=== PATIENT | male | born 1950 | race Caucasian/White ===

== ENCOUNTER 2021-03-24 16:02 | Outpatient (REF) | payer MEDICARE, SELFPAY ==
[2021-03-25 18:28] LABS: COVID-19 RT-PCR UVMMC Result Positive (Negative)
== END 2021-03-24 16:03 | disposition home or self-care (01) ==
LOC: LBN 16:02
PROVIDERS: Visit Provider Physician Assistant
DX: Z20.822 Contact with and (suspected) exposure to COVID-19 (principal); R05.8 Other specified cough
CPT/HCPCS: U0003; U0005

== ENCOUNTER 2021-06-03 04:19 | Outpatient (CLI) | payer MEDICARE, SELFPAY ==
[2021-06-03 07:19] LABS: HCT 46.5 % (40.0-50.0); MCH 29.1 pg (27.0-33.0); MCHC 32.3 % (32.0-36.0); MCV 90.1 fL (80-95); MPV 10.1 fL (8.0-11.0); Platelet Count 177 10^3/uL (130-400); RBC 5.16 10^6/uL (4.36-5.78); RDW 13.5 % (11.8-14.1); RDW-SD 45.1 fL
[2021-06-03 07:59] LABS: ALT 34 U/L (16-63); AST 23 U/L (15-37); Alkaline Phosphatase 113 U/L (46-116); BUN 20 mg/dL (7-18); Bilirubin, Total 0.4 mg/dL (0.2-1.0); CREATININE 1.2 mg/dL (0.70-1.30); Calcium 9.2 mg/dL (8.5-10.1); Calculated LDL 93 mg/dL (<100); Chloride 105 mmol/L (98-107); Cholesterol 164 mg/dL (<200); Estimated GFR 59.86 (mL/min/1.73m2); Glucose 100 mg/dL (74-106); HDL Cholesterol 37 mg/dL (40-60); Potassium 4.5 mmol/L (3.5-5.1); Sodium 141 mmol/L (136-145); Triglyceride 174 mg/dL (<150)
[2021-06-03 18:50] LABS: PSA, Screening 2.4 ng/mL (0.0-6.5)
== END 2021-06-03 04:20 | disposition home or self-care (01) ==
LOC: LBO 04:19
PROVIDERS: PCP Family Medicine; Visit Provider Family Medicine
DX: I10 Essential (primary) hypertension; I25.10 Atherosclerotic heart disease of native coronary artery without angina pectoris; Z12.5 Encounter for screening for malignant neoplasm of prostate; L98.9 Disorder of the skin and subcutaneous tissue, unspecified; Z85.46 Personal history of malignant neoplasm of prostate
CPT/HCPCS: 36415; 80053; 80061; 84153; 85027

== ENCOUNTER 2021-06-07 08:37 | Outpatient (CLI) | payer MEDICARE, SELFPAY ==
--- NOTE | 2021-06-07 08:30 | RT.EKG_ITS ---
APPROVED REPORT Exam: Resting ECG Reason for Exam: CAD Patient Location: O HR:59 bpm ECG Measurements Heart Rate 59 AXIS OK 156 P 42 QRSd 91 QRS 57 QT 387 T 59 QTc 384 Conclusion Sinus rhythm...normal P axis, V-rate 50- 99 Baseline wander in lead(s) V6 Normal Electrocardiogram
== END 2021-06-07 08:38 | disposition home or self-care (01) ==
LOC: DI.CARD 08:38
PROVIDERS: PCP Family Medicine; Visit Provider Internal Medicine Cardiovascular Disease
DX: I25.10 Atherosclerotic heart disease of native coronary artery without angina pectoris (principal)
CPT/HCPCS: 93010

== ENCOUNTER → 2021-06-07 13:29 | Outpatient (BNVA) | payer MEDICARE, SELFPAY | PROVIDERS: PCP Family Medicine; Referring Provider Family Medicine; Visit Provider Internal Medicine Cardiovascular Disease | DX: E78.5 Hyperlipidemia, unspecified (principal); I25.10 Atherosclerotic heart disease of native coronary artery without angina pectoris | CPT/HCPCS: 93005; 99203; 99204 ==

== ENCOUNTER 2022-05-17 01:50 | Outpatient (CLI) | payer MEDICARE, SELFPAY ==
[2022-05-17 12:54] LABS: Anion Gap 8.6 mmol/L (3-11); BUN 16 mg/dL (7-18); CO2 28.4 mmol/L (21.0-32.0); CREATININE 1.1 mg/dL (0.70-1.30); Calcium 9.6 mg/dL (8.5-10.1); Calculated LDL 77 mg/dL (<100); Chloride 105 mmol/L (98-107); Cholesterol 137 mg/dL (<200); Estimated GFR 71.77 (mL/min/1.73m2); Glucose 103 mg/dL (74-106); HDL Cholesterol 37 mg/dL (40-60); Potassium 4.6 mmol/L (3.5-5.1); Sodium 142 mmol/L (136-145); Triglyceride 119 mg/dL (<150)
[2022-05-17 18:29] LABS: Hepatitis C Ab w Rflx HCV PCR Negative (Negative)
== END 2022-05-17 01:51 | disposition home or self-care (01) ==
LOC: LOS 01:52
PROVIDERS: PCP Family Medicine; Visit Provider Family Medicine
DX: E87.1 Hypo-osmolality and hyponatremia (principal); Z11.59 Encounter for screening for other viral diseases; E78.5 Hyperlipidemia, unspecified
CPT/HCPCS: 36415; 80048; 80061; 86803

== ENCOUNTER → 2023-01-19 09:18 | Outpatient (BNVA) | payer MEDICARE, SELFPAY | PROVIDERS: PCP Family Medicine; Referring Provider Family Medicine; Visit Provider Student in an Organized Health Care Education/Training Program | DX: R06.6 Hiccough (principal); R06.00 Dyspnea, unspecified; I25.10 Atherosclerotic heart disease of native coronary artery without angina pectoris | CPT/HCPCS: 99205 ==

== ENCOUNTER 2023-01-24 03:04 | Outpatient (CLI) | payer MEDICARE, SELFPAY ==
[2023-01-24] MEDS: Inhaler, Assist Device 1 EACH MC (09:07)
[2023-01-24] MEDS: Levalbuterol HFA 15 GM INH 4 PUFF IH (09:07)
--- NOTE | 2023-01-24 10:46 | W.PFT ---
Date of service: 01/24/23 Time of Service: 07:55 Pulmonary Function Test Result Indications: Hiccups Interpretation Spirometry: There is no airflow limitation. No significant bronchodilator response Lung Volumes: There is hyperinflation and air trapping Diffusion Capacity: Normal diffusion Airway Pressure: Normal airways resistance Impression Likely normal pulmonary function with some air trapping Clinical Correlation therefore is recommended.
== END 2023-01-24 03:05 | disposition home or self-care (01) ==
LOC: RT 03:05
PROVIDERS: PCP Family Medicine; Visit Provider Student in an Organized Health Care Education/Training Program
DX: R06.6 Hiccough (principal)
CPT/HCPCS: 94060; 94726; 94729

== ENCOUNTER → 2023-01-27 00:29 | Outpatient (CLI) | payer MEDICARE, SELFPAY ==
--- NOTE | 2023-01-27 08:30 | DI.US_ITS ---
APPROVED REPORT EXAM: Comprehensive 2D, Doppler, and color-flow Echocardiogram Patient Location: Out-Patient Strap Stitcher: Shaw Adkins RDCS (AE) Indications: dyspnea, hiccups Other Information Study Quality: Good Conclusion Normal left ventricular wall thickness and chamber size. Ejection fraction is 65%. Wall motion is n ormal Normal right ventricular size and systolic function Both atria are normal in size Aortic valve is mildly sclerotic and probably trileaflet without stenosis or regurgitation Wall motion Left Ventricle The left ventricle is normal size. The left ventricular systolic function is normal. The left ventric ular ejection fraction is within the normal range. There is normal left ventricular wall thickness. T here is normal LV segmental wall motion. There is no ventricular septal defect visualized. LVEF is 65 %. Right Ventricle The right ventricle is normal size. The right ventricular systolic function is grossly normal. Unable to assess PA pressure. Atria The left atrium size is normal. The right atrium size is normal. The interatrial septum is intact wit h no evidence for an atrial septal defect. Aortic Valve Mild aortic valve sclerosis. Aortic valve is probably trileaflet. There is no aortic valvular stenosi s. No aortic regurgitation is present. Mitral Valve The mitral valve is normal in structure. No evidence of mitral valve stenosis. There is no mitral rona ve regurgitation noted. Tricuspid Valve The tricuspid valve is normal in structure. There is no tricuspid valve stenosis. Trace tricuspid reg urgitation. Pulmonic Valve Pulmonic valve is not well visualized. There is no pulmonic valvular stenosis. There is no pulmonic v alvular regurgitation. Great Vessels The aortic root is normal in size. The ascending aorta is normal in size. Aortic arch is normal in ca liber. IVC is normal in size and collapses >50% with inspiration. Pericardium There is no pericardial effusion. 2D Dimensions IVSD d PLAX 0.90 cm M: 0.6-1.2 Ao Root d 3.29 cm M: 3.1 - 3.7 LVPW d PLAX 0.94 cm M: 0.6 - 1.2 Ao Asc Diam d 3.32 cm M: 2.6 - 3.4 LVID d PLAX 4.32 cm M: 4.2 - 5.8 LVDs 2.96 cm M: 2.5 - 4.0 LV EF Teichholz 59.7 % FS 31.47 % LV EDV (Teich) 83.9 mL LV ESV (Teich) 33.9 mL Stroke Vol Index (Teich) 23.29 Auto EF LV EDV A4C 99.1 mL LV EDV A2C 71.3 mL LV EDV BP 84.0 mL LV ESV A4C 36.6 mL LV ESV A2C 26.2 mL LV ESV BP 30.6 mL LVEF(%) A4C 63.1 % LVEF(%) A2C 63.2 % LVEF(%) BP 63.5 % LV SV A4C 62.5 ml LV SV A2C 45.1 ml LV SV BP 53.4 ml LV CO A4C 3.5 L/min LV CO A2C 2.5 L/min LV CO BP 3.0 L/min HR A4C 55.29 BPM HR A2C 55.73 BPM LV EDV Index (BP) LA Volume LA Length A4C 3.8 cm LA Length A2C LA Area A4C s 6.65 cm2 LA Area A2C s LA Vol A4C A-L 9.86 mL LA Vol A2C A-L LA Vol Biplane A-L LA Vol A4C MOD 9.4 mL LA Vol A2C MOD LA Vol BP MOD RA Volume RA Area A4C 8.9 cm2 RA ESV A4C (A-L) 15.9mL RA Vol/BSA A4C A-L RA Length A4C 4.2 cm RA ESV A4C (MOD) 16.6mL LV Diastology MV E' medial 0.092 (>0.07 m/s) MV E Vmax 0.74 (0.4-1.3 m/s) MV E/E' MED 8.00 (<14) MV A Vmax 0.95 (0.4-1.3 m/s) MV E' lateral 0.095 (>0.1 m/s) E/A Ratio 0.8 MV E/E' LAT 7.74 (<14) MV E' Average 0.094 m/s MV E/E'(average) 7.87 Aortic Valve AoV Vmax 1.43 m/s LVOT Vmax 1.17 m/s AoV Peak Grad 8.2 mmHg LVOT Peak Grad 5.5 mmHg AoV Area (Vmax) 2.29 cm2 LVOT VTI 0.279 m AoV VTI 0.338 m LVOT Mean Grad 3.0 mmHg AoV Mean Wai. 0.97 m/s LVOT SV 78.22 mL AoV Mean Grad 4.4 mmHg LVOT Diam s 1.85 cm AoV Area (VTI) 2.32 cm2 Velocity Ratio 0.82 Mitral Valve MV DT 261 (160-240 msec) Pulmonary Valve PV Vmax 1.41 (0.5-1.5 m/s) RVOT Vmax 0.80 m/s PV Peak Grad 7.9 mmHg RVOT Peak Gr. 2.6 mmHg PV Mean Wai 0.93 m/s RVOT VTI 0.198 m PV Mean Grad 3.9 mmHg RVOT Mean Gr. 1.4 mmHg
--- NOTE | 2023-01-27 15:25 | DI.RAD_ITS ---
Exam(s) XR CHEST 2V PA LATERAL EXAM: XR CHEST 2V PA LATERAL CLINICAL HISTORY: R06.00 dyspnea R06.06 TECHNIQUE: 2D digital imaging was performed. COMPARISON: No exams were available for comparison FINDINGS: HEART: Normal size. Aorta: Not dilated. PULMONARY VASCULATURE: Normal. LUNGS: Clear. No visible emphysematous changes. No visible interstitial changes. PLEURAL SPACE: No pleural effusion or pneumothorax. BONE:Unremarkable for age. IMPRESSION: No acute abnormality. DATA REPOSITORY: RADIATION DOSE DELIVERED:
== END ==
PROVIDERS: PCP Family Medicine; Visit Provider Student in an Organized Health Care Education/Training Program
DX: R06.00 Dyspnea, unspecified (principal); R06.6 Hiccough
CPT/HCPCS: 93306; 71046

== ENCOUNTER → 2023-02-20 09:08 | Outpatient (BNVA) | payer MEDICARE, SELFPAY | PROVIDERS: PCP Family Medicine; Referring Provider Family Medicine; Visit Provider Student in an Organized Health Care Education/Training Program | DX: R06.6 Hiccough (principal); I25.10 Atherosclerotic heart disease of native coronary artery without angina pectoris | CPT/HCPCS: 99214 ==

== ENCOUNTER 2023-09-20 04:46 | Outpatient (CLI) | payer MEDICARE, SELFPAY ==
[2023-09-20 09:16] LABS: Hemoglobin A1C 5.6 % (<5.7)
[2023-09-20 09:31] LABS: Calculated LDL 77 mg/dL (<100); Cholesterol 146 mg/dL (<200); HDL Cholesterol 41 mg/dL (40-60); Triglyceride 141 mg/dL (<150)
[2023-09-20 18:06] LABS: PSA, Screening 2.4 ng/mL (<=6.5)
== END 2023-09-20 04:47 | disposition home or self-care (01) ==
LOC: LBO 04:46
PROVIDERS: Nurse Practitioner Family; PCP Family Medicine; Visit Provider Family Medicine
DX: Z13.1 Encounter for screening for diabetes mellitus (principal); Z12.5 Encounter for screening for malignant neoplasm of prostate; Z13.6 Encounter for screening for cardiovascular disorders
CPT/HCPCS: 36415; 80061; 84153; 83036

== ENCOUNTER 2024-07-05 15:06 | Emergency (ER) | payer MEDICARE, SELFPAY ==
[2024-07-05] VITALS (12 sets, daily range): BP systolic 133–198; BP diastolic 67–81; PULSE 55–65; RESP 13–25; TEMP 36.7; O2SAT 97–98
--- NOTE | 2024-07-05 15:00 | RT.EKG_ITS ---
APPROVED REPORT Exam: Resting ECG Reason for Exam: Weakness Patient Location: E HR:63 bpm ECG Measurements Heart Rate 63 AXIS HI 151 P 46 QRSd 96 QRS 55 QT 397 T 63 QTc 404 Conclusion Sinus rhythm...normal P axis, V-rate 60- 99 Atrial premature complex...SV complex w/ short R-R interval
--- NOTE | 2024-07-05 15:30 | DI.MRI_ITS ---
Exam(s) MR BRAIN WO EXAM: MR BRAIN WO CLINICAL HISTORY: headache, off balance, double vision TECHNIQUE: Multiplanar multisequence MRI of the brain was performed. COMPARISON: CT CT BRAIN NECK CTA from 07/05/2024 FINDINGS: VENTRICLES AND EXTRA AXIAL SPACES: Normal in size and morphology for the patient's age. MIDLINE SHIFT: None. CEREBRAL PARENCHYMA: No focus of restricted diffusion to suggest acute infarct. No space-occupying le wesley identified. Few scattered areas of hyperintense signal seen in the white matter on the FLAIR and T2 weighted images most consistent with chronic microvascular ischemic changes. HEMORRHAGE: None. BRAINSTEM/CEREBELLUM: Normal. CALVARIUM: Normal. VISUALIZED PARANASAL SINUSES/MASTOIDS:Clear. [facility]: Normal flow void. PITUITARY GLAND: Unremarkable. OTHER FINDINGS: None. IMPRESSION: No evidence of an acute infarct. DATA REPOSITORY:
--- NOTE | 2024-07-05 15:36 | ED.GENADUL_ITS ---
Discharge Plan Discharge Details Chief Complaint: CVA/TIA Primary Care Provider: Teo Ghosh ED Provider: Alexis Jerome Home Meds and New Rx's Prescriptions: No Action aspirin 81 mg tablet,chewable 81 mg PO DAILY atorvastatin [Lipitor] 80 mg tablet 80 mg PO DAILY Qty: 90 3RF ezetimibe [Zetia] 10 mg tablet 10 mg PO DAILY Qty: 90 3RF tirzepatide (weight loss) 2.5 mg/0.5 mL pen injector 2.5 mg subcut QWEEK Qty: 2 0RF Rx Instructions: for 4 weeks tetanus-diphtheria toxoids-Td 2-2 Lf unit/0.5 mL suspension 0.5 ml IM ONCE Qty: 0.5 0RF doxycycline hyclate 100 mg tablet 100 mg PO BID 14 Days Qty: 28 0RF metoprolol tartrate 25 mg tablet 12.5 mg PO DAILY Qty: 45 3RF sertraline 50 mg tablet 50 mg PO DAILY Qty: 30 2RF HPI General Mode of arrival: ambulatory . Date/Time Provider Initiated Documentation: 07/05/24 15:10 . Limitations to Documentation: no limitations . Information obtained by: patient and family . HPI Narrative: HISTORY OF PRESENT ILLNESS The patient presents to the ER with headaches, blurred vision, and diplopia, accompanied by his son. He has had persistent headaches, blurred vision, and diplopia for the past few days, worsening progressively, especially his eyesight and balance. Headache severity has decreased since his initial visit, but vision problems were absent then. Initially suspected sinus infection, saw PCP.. A week later, prescribed an antibiotic by a PA who suspected sinus infection. Despite several appointments with PCP and PA over the past 2 weeks, no improvement. Advised to undergo CT scan and referred to ER. Reports difficulty with balance and walking, necessitating a slow pace due to shakiness. No falls, specific weakness, or numbness. Manages to drive short distances by covering one eye. BP elevated today, typically well-controlled. Earlier today underwent cyst removal from back under local anesthesia with lidocaine. Related Data Home Medications ?Medication ?Instructions ?Recorded ?Confirmed aspirin 81 mg chewable tablet 81 mg PO DAILY 03/24/21 07/05/24 metoprolol tartrate 25 mg tablet 12.5 mg (1/2 x 25 mg) PO DAILY #45 01/04/24 07/05/24 tabs sertraline 50 mg tablet 50 mg PO DAILY #30 tabs 05/30/24 07/05/24 atorvastatin 80 mg tablet (Lipitor) 80 mg PO DAILY #90 tabs 06/25/24 07/05/24 ezetimibe 10 mg tablet (Zetia) 10 mg PO DAILY #90 tabs 06/25/24 07/05/24 tirzepatide (weight loss) 2.5 2.5 mg (0.5 mL) subcut QWEEK #2 mL 06/25/24 07/05/24 mg/0.5 mL subcutaneous pen injector doxycycline hyclate 100 mg tablet 100 mg PO BID 14 days #28 tabs 07/02/24 07/05/24 tetanus-diphtheria toxoids-Td 2 Lf 0.5 ml IM ONCE #0.5 mL 07/05/24 07/05/24 unit-2 Lf unit/0.5 mL IM suspension Previous Rx's ?Medication ?Instructions ?Recorded metoprolol tartrate 25 mg tablet 12.5 mg (1/2 x 25 mg) PO DAILY #45 01/04/24 tabs sertraline 50 mg tablet 50 mg PO DAILY #30 tabs 05/30/24 atorvastatin 80 mg tablet (Lipitor) 80 mg PO DAILY #90 tabs 06/25/24 ezetimibe 10 mg tablet (Zetia) 10 mg PO DAILY #90 tabs 06/25/24 tirzepatide (weight loss) 2.5 2.5 mg (0.5 mL) subcut QWEEK #2 mL 06/25/24 mg/0.5 mL subcutaneous pen injector doxycycline hyclate 100 mg tablet 100 mg PO BID 14 days #28 tabs 07/02/24 tetanus-diphtheria toxoids-Td 2 Lf 0.5 ml IM ONCE #0.5 mL 07/05/24 unit-2 Lf unit/0.5 mL IM suspension Allergies Allergy/AdvReac Type Severity Reaction Status Date / Time cefaclor (From [facility]) Allergy Intermediate Whole body Verified 07/05/24 15:16 Hives General Stated Complaint: CVA/TIA HECTOR: 3 Review of Systems All systems reviewed & are unremarkable except as noted in HPI and below Constitutional Constitutional: Denies fever(s) Neurologic Neurologic: Reports as per HPI Exam Const General: cooperative and no acute distress HENMT Head: normocephalic and atraumatic Mouth: moist mucous membranes Eyes Conjunctivae: normal conjunctivae Sclera: normal sclerae EOM: EOM intact bilaterally and nystagmus Neck Neck: trachea midline and supple Resp Auscultation: clear to auscultation bilaterally, no rales, no rhonchi and no wheezes Cardio Jugular venous pressure: no JVD Rate: regular rate and not tachycardic Rhythm: regular rhythm Heart Sounds: murmur systolic II/ and at the right sternal border GI Palpation: soft, not firm, no guarding, no masses, not rigid and nontender Skin General skin exam: no rashes or lesions noted Neuro General: patient alert, patient awake, patient oriented x3 and tone normal Cranial Nerves: PERRL, accommodation normal, EOM intact bilaterally, facial strength normal, tongue midline, hearing normal, able to rotate head bilaterally, able to elevate shoulders bilaterally, nystagmus horizontal and with left lateral gaze and symmetric palate elevation Cognition: normal cognition Speech: speech normal Motor: strength 5/5 throughout Sensory Exam: no sensory deficits noted Coordination: [id number] test abnormal (Some past-pointing) and jlmy-eu-[id number] test normal Other: Normal rapid alternating movements Extrem General: no edema Psych Appearance: grossly normal Mental Status: mental status grossly normal Speech and Movement: speech and movement normal Course Vital Signs Vital signs: Vital Signs Temperature 36.7 C 07/05/24 15:07 Pulse 65 07/05/24 15:07 Respiratory Rate 18 07/05/24 15:07 Blood Pressure 198/79 H 07/05/24 15:07 Pulse Oximetry 97 07/05/24 15:07 Temperature 36.7 C 07/05/24 15:07 Pulse 65 07/05/24 15:07 Respiratory Rate 18 07/05/24 15:30 Respiratory Effort Normal, Non-Labored 07/05/24 15:30 Respiratory Depth Normal 07/05/24 15:30 Respiratory Pattern Normal 07/05/24 15:30 Blood Pressure 198/79 H 07/05/24 15:07 Pulse Oximetry 97 07/05/24 15:07 Medical Decision Making ASSESSMENT AND PLAN Initial Assessment: Patient presents with persistent headaches, blurry vision, diplopia, balance issues, and elevated blood pressure. Differential Diagnosis: - Posterior circulation CVA - Intracranial mass - Elevated BP: BP noted to be high during annual wellness check, measured at 135/73 an hour ago. Recently had cyst removed from back, which may have contributed to elevated reading. - No fever or neck stiffness to suggest meningitis. ED Course: - Patient evaluated for persistent headaches, blurry vision, diplopia, balance issues, and elevated blood pressure. - Discussed recent visits to PCP and PA, prescribed medication, and slight improvement in headaches. - Noted progressively worsening blurry vision and diplopia. - Assessed balance issues, no falls, specific weakness, or numbness. - Reviewed elevated BP, recent cyst removal from back. - Considered MRI capability for further evaluation. 16: -- CTA brain and neck interpreted by radiology:1. No large vessel occlusion or significant stenosis on the CT angiography of the head. 2. No acute intracranial process. 3. No occlusion or significant stenosis on the CT angiography of the neck. Assessment at signout: Patient's symptoms include persistent headaches, progressively worsening blurry vision and diplopia, balance issues, and elevated blood pressure. Recent cyst removal may have contributed to elevated BP. Clinical Impression: - Headaches - Blurred vision - Diplopia - Balance issues - Elevated BP Concern for potential posterior CVA. Disposition: - Follow-Up: MRI capability to be considered for further evaluation. MDM Components Evaluation: - Number of Differential Diagnoses or Management Options: Headaches, Blurred vision, Diplopia, Balance issues, Elevated BP - Amount and Complexity of Data Reviewed: Recent visits to PCP and PA, prescribed medication, slight improvement in headaches, progressively worsening blurry vision and diplopia, balance issues, elevated BP, recent cyst removal from back. - Risk of Complication and Morbidity or Mortality: Elevated BP, progressively worsening vision issues, balance problems. This document was written with the assistance of CHRIST Nevarez. The patient consented to its use. Lab Data Lab results reviewed: Yes I reviewed the patient's lab results. Labs: Laboratory Tests Range/Units 07/05/24 15:20 WBC (4.4-10.8) 10^3/uL 9.84 RBC (4.36-5.78) 10^6/uL 4.69 Hgb (13.5-17.5) g/dL 14.2 Hct (40.0-50.0) % 42.9 MCV (80-95) fL 92 MCH (27.0-33.0) pg 30.3 MCHC (32.0-36.0) % 33.1 RDW (11.8-14.1) % 13.6 Plt Count (130-400) 10^3/uL 175 MPV (8.0-11.0) fL 9.4 Immature Gran % % 0.6 Neutrophils % % 75.2 Lymphocytes % % 15.2 Monocytes % % 6.6 Eosinophils % % 1.9 Basophils % % 0.5 Nucleated RBC % (0.0-0.3) % 0.0 Absolute Neutrophils (1.2-6.7) 10^3/uL 7.39 H Absolute Lymphocytes (1.2-3.4) 10^3/uL 1.50 Absolute Monocytes (0.1-0.8) 10^3/uL 0.65 Absolute Eosinophils (0.0-0.7) 10^3/uL 0.19 Absolute Basophils (0.0-0.2) 10^3/uL 0.05 Sodium (136-145) mmol/L 138 Potassium (3.5-5.1) mmol/L 4.1 Chloride (98-107) mmol/L 102 Carbon Dioxide (21.0-32.0) mmol/L 31.9 Anion Gap (3-11) mmol/L 4.1 BUN (7-18) mg/dL 10 Creatinine (0.70-1.30) mg/dL 1.0 Est GFR (CKD-EPI 2020) (mL/min/1.73m2) 79.47 Glucose (74-106) mg/dL 108 H Calcium (8.5-10.1) mg/dL 9.1 Magnesium mg/dL 1.9 Total Bilirubin (0.2-1.0) mg/dL 0.6 AST (15-37) U/L 27 ALT (16-63) U/L 39 Alkaline Phosphatase (46-116) U/L 95 Troponin I (<or=76) ng/L 7 Total Protein (6.4-8.2) g/dL 7.2 Albumin (3.4-5.0) g/dL 3.5 Quality:SDOH Health Related Social Needs: No Data to Display PFSH All Active Problems Diplopia (Acute) Obesity (BMI 30-39.9) (Acute) Nail dystrophy (Acute) Hiccups (Acute) GERD with apnea (Acute) COVID-19 (Acute) 03/2021-modest URI symptoms-resolved Colon polyp (Acute) Recurrent benign colon polyps, last colonoscopy 2019, due 2024 Hyperlipidemia (Acute) Posterior vitreous detachment, both eyes (Acute) Major depressive disorder, recurrent (Acute) 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 Currently not requiring treatment as of 05/2021 Coronary artery disease (Chronic) 2004-acute GA diagnosed and treated in [place], 1 stent placed at the [facility] Medical History Personal history of nicotine dependence Quit about 2001, about a 27-afwh-aydu history Alcohol abuse Remote history-stopped drinking about 30 years ago Tobacco use Colon polyps Myocardial infarction (~2003) Surgical History Knee joint replacement status Bilateral knee replacement History of cataract surgery Bilateral Family History Mother , 81 No problems noted. Sister No problems noted. Sister No problems noted. Son No problems noted. Daughter No problems noted. Social History Smoking/Tobacco Use Status: Former Tobacco Use tobacco type: cigarettes Quit Date: 04/03/01 Tobacco: How many years used: 35 Quit status: quit date established Second Hand Exposure: Yes Smoking risk assessment performed?: Yes Alcohol Intake: former Drug use: Current Sobriety Caregiver/Support person: No Household members: none Do you need help understanding health information?: Rarely Pets and animals: Yes Pets and animals: cat(s) Sexually active: No Do you think of yourself as: straight/heterosexual Current gender identity: male What is your relationship status?: How often do you talk on the phone with friends or family?: three or more times per week How often do you get together with friends or relatives?: three or more times per week How often do you attend mormonism or restoration services?: decline to answer Do you belong to any clubs or organized social groups?: no Panel score (0-1 are the most socially isolated patients): 1 What type of physical activity do you participate in: walking Duration: 30-45 minutes/day Frequency: 3-4 times per week Awilda/Catholic: No preference Special awilda needs: No Seatbelt use: always Drive intox or ride w/intox drive away driver: No
[2024-07-05 15:42] LABS: Abs Immature Grans 0.06 10^3/uL (0.0-0.06); Absolute Basophil Count 0.05 10^3/uL (0.0-0.2); Absolute Eosinophil Count 0.19 10^3/uL (0.0-0.7); Absolute Monocyte Count 0.65 10^3/uL (0.1-0.8); Absolute Neutrophil Count 7.39 10^3/uL (1.2-6.7); Basophils % 0.5 %; Eosinophils % 1.9 %; HCT 42.9 % (40.0-50.0); HGB 14.2 g/dL (13.5-17.5); Immature Grans % 0.6 %; Lymphocytes % 15.2 %; MCH 30.3 pg (27.0-33.0); MCHC 33.1 % (32.0-36.0); MCV 92 fL (80-95); MPV 9.4 fL (8.0-11.0); Monocytes % 6.6 %; Neutrophils % 75.2 %; Platelet Count 175 10^3/uL (130-400); RBC 4.69 10^6/uL (4.36-5.78); RDW 13.6 % (11.8-14.1); RDW-SD 45.8 fL; WBC 9.84 10^3/uL (4.4-10.8)
[2024-07-05] MEDS: Normal Saline - Diluent 50 ML VIAL IJ (15:44)
[2024-07-05] MEDS: Omnipaque 350 MG/ML 100 ML BTL 70 ML IJ (15:45)
[2024-07-05 16:01] LABS: ALT 39 U/L (16-63); AST 27 U/L (15-37); Albumin 3.5 g/dL (3.4-5.0); Alkaline Phosphatase 95 U/L (46-116); Anion Gap 4.1 mmol/L (3-11); BUN 10 mg/dL (7-18); Bilirubin, Total 0.6 mg/dL (0.2-1.0); CO2 31.9 mmol/L (21.0-32.0); Calcium 9.1 mg/dL (8.5-10.1); Chloride 102 mmol/L (98-107); Estimated GFR 79.47 (mL/min/1.73m2); Glucose 108 mg/dL (74-106); Magnesium 1.9 mg/dL; Potassium 4.1 mmol/L (3.5-5.1); Sodium 138 mmol/L (136-145); Total Protein 7.2 g/dL (6.4-8.2); Troponin I 7 ng/L (<or=76)
--- NOTE | 2024-07-05 16:29 | DI.CT_ITS ---
Exam(s) CT BRAIN NECK CTA EXAM: CT BRAIN NECK CTA CLINICAL HISTORY: headache, blurred vission, off balance. TECHNIQUE: Imaging Protocol: Axial CT angiography was performed with multi-slice acquisition and mu lti-planar and/or 3D reconstructions. CONTRAST MATERIAL: Intravenous: Omnipaque 350 contrast volume:70 mL COMPARISON: No exams were available for comparison FINDINGS: CT Head W/O and W: Ventricles and Extra axial spaces: Normal in size and morphology for the patient's age. Hemorrhage: None. Cerebral parenchyma: No evidence of an acute territorial infarct. Midline shift: None. Brainstem/Cerebellum: Normal. Calvarium: Normal. Visualized Paranasal sinuses/Mastoids: Clear. Soft Tissues: Unremarkable. Enhancement: Unremarkable. CTA Neck W: Common Carotid: Right: No dissection, occlusion or significant stenosis. Left: No dissection, occlusion or significant stenosis. External Carotid: Right: No occlusion or significant stenosis. Left: No occlusion or significant stenosis. Internal Carotid: Right: No dissection, occlusion or significant stenosis. Mild atherosclerotic calcification is seen in the proximal internal carotid artery. Left: No dissection, occlusion or significant stenosis. Atherosclerotic calcification is seen in the carotid bulb in the proximal internal carotid artery. Vertebral Artery: Right: No dissection, occlusion or significant stenosis. Atherosclerotic calcification is seen at th e origin of the vertebral artery. Left: No dissection, occlusion or significant stenosis. Atherosclerotic calcification is seen at the origin of the vertebral artery. Lung Apices: Normal. Bones: Within normal limits for the patient's age. Soft Tissues: Normal. Thyroid gland: Unremarkable. CTA Brain W: Internal Carotid Arteries: Atherosclerotic calcification is present bilaterally in the cavernous port ions. No aneurysm, occlusion or significant stenosis is seen. Anterior Cerebral Arteries: Right: No aneurysm, occlusion or significant stenosis. Left: No aneurysm, occlusion or significant stenosis. Middle Cerebral Arteries: Right: No aneurysm, occlusion or significant stenosis. Left: No aneurysm, occlusion or significant stenosis. Posterior Cerebral Arteries: The posterior communicating arteries are present bilaterally. This is a normal variant. Right: No aneurysm, occlusion or significant stenosis. Left: No aneurysm, occlusion or significant stenosis. Vertebral Arteries: Right: No aneurysm, occlusion or significant stenosis. Left: No aneurysm, occlusion or significant stenosis. Basilar Artery: No aneurysm, occlusion or significant stenosis. IMPRESSION: 1. No large vessel occlusion or significant stenosis on the CT angiography of the head. 2. No acute intracranial process. 3. No occlusion or significant stenosis on the CT angiography of the neck. RADIATION DOSE DELIVERED: 2,437.54mGy.cm Total DLP DATA REPOSITORY: All CT scans at this facility are submitted to the National Radiology Data Registry (NRDR) Dose Index Registry (DIR) with the [employer] (ACR). RADIATION OPTIMIZATION: All CT scans at this facility use at least one of these dose optimization te chniques: automated exposure control; mA and/or kV adjustment per patient size (includes targeted exa ms where dose is matched to clinical indication); or iterative reconstruction.
--- NOTE | 2024-07-05 16:38 | NUR.NOTE ---
Nursing Note:2nd trop late d/t patient being in MRI
--- NOTE | 2024-07-05 16:57 | W.EDPROG ---
Date of service: 07/05/24 Time of Service: 16:57 Medical Decision Making I received signout on this 73-year-old male pending MRI results in the setting of headache blurred vision for the past several days. Will reassess following MRI. 6:43 PM Patient had a reassuring MRI. His blood pressure improved without intervention. He has plans to see an bridge contractor. We discussed that if you develop weakness in an extremity worsening headaches or worsening vision that he should return immediately to the emergency department. His son will drive him home. Quality:[facility] Health Related Social Needs: No Data to Display Discharge Plan Disposition Patient Disposition: Home Discharge Details Clinical Impression: Blurred vision Primary Care Provider: Teo Ghosh ED Provider: Sanjeev Starr [place] Meds and New Rx's Prescriptions: Continued aspirin 81 mg tablet,chewable 81 mg PO DAILY atorvastatin [Lipitor] 80 mg tablet 80 mg PO DAILY Qty: 90 3RF ezetimibe [Zetia] 10 mg tablet 10 mg PO DAILY Qty: 90 3RF tirzepatide (weight loss) 2.5 mg/0.5 mL pen injector 2.5 mg subcut QWEEK Qty: 2 0RF Rx Instructions: for 4 weeks tetanus-diphtheria toxoids-Td 2-2 Lf unit/0.5 mL suspension 0.5 ml IM ONCE Qty: 0.5 0RF doxycycline hyclate 100 mg tablet 100 mg PO BID 14 Days Qty: 28 0RF metoprolol tartrate 25 mg tablet 12.5 mg PO DAILY Qty: 45 3RF sertraline 50 mg tablet 50 mg PO DAILY Qty: 30 2RF Discharge Instructions Additional Instructions: You were seen in the emergency department for your blurry vision. Your MRI showed no sign of any stroke. Your CAT scan showed no signs of any critical blockages. Your blood work showed no sign of heart attack. As we discussed if you develop weakness began feeling nauseous or vomiting or have any other concerns please return to the emergency department. Otherwise please follow-up with an academic advisement director or an bridge contractor and your primary care provider.
[2024-07-05 18:11] LABS: Troponin I 9 ng/L (<or=76)
--- NOTE | 2024-07-05 19:04 | NUR.NOTE ---
Nursing Note: this RN cleaned and changed dressing to pt back
== END 2024-07-05 19:08 | disposition home or self-care (01) ==
PROVIDERS: Student in an Organized Health Care Education/Training Program; Emergency Provider Emergency Medicine; PCP Family Medicine
DX: H53.8 Other visual disturbances (principal); R51.9 Headache, unspecified; I25.2 Old myocardial infarction; Z79.82 Long term (current) use of aspirin; Z79.899 Other long term (current) drug therapy
CPT/HCPCS: 00123; 70496; 70498; 80053; 82962; 93005; 99285; 70551; 83735; 84484; 85025; 93010; 99284; J3490

== ENCOUNTER 2024-07-05 16:43 | Outpatient (REF) | payer MEDICARE, SELFPAY | END 2024-07-05 16:44 | disposition home or self-care (01) | LOC: LBN 16:43 | PROVIDERS: PCP Family Medicine; Visit Provider Nurse Practitioner Family | DX: L02.91 Cutaneous abscess, unspecified (principal) | CPT/HCPCS: 87070; 87205 ==

== ENCOUNTER 2024-08-01 03:56 | Outpatient (CLI) | payer MEDICARE, SELFPAY ==
[2024-08-01 09:51] LABS: Calculated LDL 75 mg/dL (<100); Cholesterol 138 mg/dL (<200); HDL Cholesterol 42 mg/dL (>or=40); TSH (W/Ref FT4) 3.01 uIU/mL (0.36-3.74); Triglyceride 109 mg/dL (<150)
== END 2024-08-01 03:57 | disposition home or self-care (01) ==
LOC: LBO 03:56
PROVIDERS: Nurse Practitioner Family; PCP Family Medicine; Visit Provider Family Medicine
DX: Z13.6 Encounter for screening for cardiovascular disorders (principal); E03.9 Hypothyroidism, unspecified
CPT/HCPCS: 36415; 80061; 84443

== ENCOUNTER 2024-10-22 10:14 | Outpatient (CLI) | payer MEDICARE, SELFPAY ==
--- NOTE | 2024-10-22 10:00 | RT.EKG_ITS ---
APPROVED REPORT Exam: Resting ECG Reason for Exam: Dizziness Patient Location: O HR:64 bpm ECG Measurements Heart Rate 64 AXIS KS 129 P -63 QRSd 97 QRS 64 QT 399 T 76 QTc 412 Conclusion Sinus or ectopic atrial rhythm...P axis (-45,135) Nonspecific T abnrm, anterolateral leads...T <-0.10mV, I aVL V2-V6
== END 2024-10-22 10:15 | disposition home or self-care (01) ==
LOC: DI.CM 10:15
PROVIDERS: PCP Family Medicine; Visit Provider Physician Assistant Medical
DX: R07.89 Other chest pain (principal)
CPT/HCPCS: 93010

== ENCOUNTER 2024-10-22 11:35 | Emergency (ER) | payer MEDICARE, SELFPAY ==
--- NOTE | 2024-10-22 11:30 | RT.EKG_ITS ---
APPROVED REPORT Exam: Resting ECG Reason for Exam: Irregular heart beat Patient Location: E HR:66 bpm ECG Measurements Heart Rate 66 AXIS OR 128 P -75 QRSd 92 QRS 71 QT 389 T 72 QTc 406 Conclusion Sinus 66 nromal axis no stemi
[2024-10-22 11:43] VITALS: BP 147/77; PULSE 66; RESP 16; TEMP 36.7; O2SAT 98
--- NOTE | 2024-10-22 12:00 | DI.RAD_ITS ---
Exam(s) XR CHEST 2V PA LATERAL EXAM: XR CHEST 2V PA LATERAL CLINICAL HISTORY: dizzy, cough TECHNIQUE: 2D digital imaging was performed. Two views. COMPARISON: CR XR CHEST 2V PA LATERAL from 01/27/2023 FINDINGS: HEART: Normal size. Aorta: Not dilated. PULMONARY VASCULATURE: Normal. MEDIASTINUM: Unremarkable. LUNGS: Clear. PLEURAL SPACE: No pleural effusion or pneumothorax. BONE:Unremarkable for age. SOFT TISSUES: Unremarkable. IMPRESSION: No acute abnormality. DATA REPOSITORY: RADIATION DOSE DELIVERED:
--- NOTE | 2024-10-22 12:00 | DI.CT_ITS ---
Exam(s) CT HEAD WO EXAM: CT HEAD WO CLINICAL HISTORY: dizzy. TECHNIQUE: Imaging Protocol: Axial computed tomography images with coronal and sagittal reformatted images were created and reviewed COMPARISON: CT CT BRAIN NECK CTA from 07/05/2024 FINDINGS: Ventricles and Extra axial spaces: Normal in size and morphology for the patient's age. Hemorrhage: None. Cerebral parenchyma: No evidence of acute infarct or mass. Midline shift: None. Brainstem/Cerebellum: Normal. Bones: No skull or facial fractures. Visualized Paranasal sinuses:Clear. Mastoids: Clear. Soft Tissues: Unremarkable. ORBITS: Unremarkable. PITUITARY: Not enlarged. IMPRESSION: No acute intracranial process. RADIATION DOSE DELIVERED: 915.08mGy.cm Total DLP DATA REPOSITORY: All CT scans at this facility are submitted to the National Radiology Data Registry (NRDR) Dose Index Registry (DIR) with the [employer] ([employer]). RADIATION OPTIMIZATION: All CT scans at this facility use at least one of these dose optimization techniques: automated exposure control; mA and/or kV adjustment per patient size (includes targeted exams where dose is matched to clinical indication); or iterative reconstruction.
[2024-10-22 12:06] VITALS: BP 124/68; BP 131/71; BP 135/63; PULSE 63; PULSE 72; PULSE 80
[2024-10-22 12:21] LABS: Abs Immature Grans 0.03 10^3/uL (0.0-0.06); HCT 45.2 % (40.0-50.0); HGB 14.9 g/dL (13.5-17.5); Immature Grans % 0.4 %; MCH 29.8 pg (27.0-33.0); MCHC 33.0 % (32.0-36.0); MCV 90 fL (80-95); MPV 9.2 fL (8.0-11.0); Platelet Count 192 10^3/uL (130-400); RBC 5.00 10^6/uL (4.36-5.78); RDW 14.0 % (11.8-14.1); RDW-SD 46.5 fL; WBC 6.80 10^3/uL (4.4-10.8)
[2024-10-22 12:22] LABS: BE (Venous) 2 mmol/L (-2-3); HCO3 (Venous) 27 mmol/L (23-28); O2 Sat (Venous) 72 %; TCO2 (Venous) 24 mmol/L (24-29); pCO2 (Venous) 45 mmHg (41-51); pO2 (Venous) 40 mmHg
[2024-10-22 12:33] LABS: INR 1.0 (0.9-1.1); Prothrombin Time 10.5 sec (9.1-11.1)
[2024-10-22 12:52] LABS: ALT 36 U/L (16-63); AST 29 U/L (15-37); Albumin 3.9 g/dL (3.4-5.0); Alkaline Phosphatase 110 U/L (46-116); Anion Gap 6.5 mmol/L (3-11); BUN 17 mg/dL (7-18); Bilirubin, Total 0.5 mg/dL (0.2-1.0); CO2 27.5 mmol/L (21.0-32.0); Calcium 9.5 mg/dL (8.5-10.1); Chloride 103 mmol/L (98-107); Estimated GFR 78.98 (mL/min/1.73m2); Glucose 109 mg/dL (74-106); Potassium 4.6 mmol/L (3.5-5.1); Sodium 137 mmol/L (136-145); Total Protein 7.5 g/dL (6.4-8.2)
--- NOTE | 2024-10-22 13:53 | ED.GENADUL_ITS ---
Discharge Plan Disposition Patient Disposition: Home Condition: Stable Discharge Details Clinical Impression: Dizziness Primary Care Provider: Teo Ghosh ED Provider: Jennifer Davalos Home Meds and New Rx's Prescriptions: New meclizine 25 mg tablet 25 mg PO TID PRN (Reason: dizziness) Qty: 20 0RF No Action aspirin 81 mg tablet,chewable 81 mg PO DAILY atorvastatin [Lipitor] 80 mg tablet 80 mg PO DAILY Qty: 90 3RF ezetimibe [Zetia] 10 mg tablet 10 mg PO DAILY Qty: 90 3RF albuterol sulfate 90 mcg/actuation HFA aerosol inhaler 2 puff inhalation Q6H PRN (Reason: shortness of breath or wheezing) Qty: 8.5 0RF metoprolol tartrate 25 mg tablet 12.5 mg PO DAILY Qty: 45 3RF sertraline 50 mg tablet 50 mg PO DAILY Qty: 30 2RF Discharge Instructions Instructions: Vertigo (a type of dizziness) Additional Instructions: You were evaluated for episode of dizziness that occurred last night. At this time you do not have any symptoms and do not have any acute neurologic findings. Your symptoms seem consistent with vertigo that can happen with acute positional changes. Please take care and use extra time when going from sitting to standing, especially at nighttime when you are waking up from sleep your blood work, CT scan and x-ray all look good. Your pneumonia has resolved. Please continue follow-up with your PCP as needed. Return to the emergency department with any loss of consciousness, persistent dizziness, persistent vomiting or any neurologic deficit HPI General Date/Time Provider Initiated Documentation: 10/22/24 12:00 . Limitations to Documentation: no limitations . Information obtained by: patient . HPI Narrative: 74-year-old gentleman with past medical history of CAD, COPD, depression, hypertension presents for evaluation of dizziness. He was referred to the emergency department by [facility]. He reports that he was treated for pneumonia a couple of weeks ago and completed the course of antibiotics. He reports that he is still having some occasional cough and shortness of breath. No chest pain. No fever. He reports that he has been having some intermittent episodes of dizziness. He reports these episodes occur in the morning when he wakes up or if he gets up in the middle the night to go to the bathroom. He reports that the episodes feel like the room is spinning, occasionally he feels like he is going to throw up, last night he had an episode that was very severe and he felt like he was going to fall down. This occurred while walking to the bathroom. He did not fall down, lose consciousness or have any vomiting. He made it back to his bedroom where he was able to lay down and go to sleep. He states when he woke up this morning the symptoms had mostly resolved he was not feeling very dizzy but there was some slight dizziness. At this time in the emergency department he has no symptoms Related Data Home Medications ?Medication ?Instructions ?Recorded ?Confirmed aspirin 81 mg chewable tablet 81 mg PO DAILY 03/24/21 10/22/24 metoprolol tartrate 25 mg tablet 12.5 mg (1/2 x 25 mg) PO DAILY #45 01/04/24 10/22/24 tabs atorvastatin 80 mg tablet (Lipitor) 80 mg PO DAILY #90 tabs 06/25/24 10/22/24 ezetimibe 10 mg tablet (Zetia) 10 mg PO DAILY #90 tabs 06/25/24 10/22/24 sertraline 50 mg tablet 50 mg PO DAILY #30 tabs 05/0 12/2610/22/24 albuterol sulfate 90 mcg/actuation 2 puff inhalation Q 6H PRN 10/09/24 10/22/24 aerosol inhaler shortness of breath or wheez ing #8.5 grams meclizine 25 mg tablet 25 mg PO TID PRN dizziness # 20 tabs 10/22/24 Previous Rx's ?Medication ?Instructions ?Recorded metoprolol tartrate 25 mg tablet 12.5 mg (1/2 x 25 mg) PO DAILY #45 01/04/24 tabs atorvastatin 80 mg tablet (Lipitor) 80 mg PO DAILY #90 tabs 06/25/24 ezetimibe 10 mg tablet (Zetia) 10 mg PO DAILY #90 tabs 06/25/24 sertraline 50 mg tablet 50 mg PO DAILY #30 tabs 05/0 12/26 albuterol sulfate 90 mcg/actuation 2 puff inhalation Q 6H PRN 10/09/24 aerosol inhaler shortness of breath or wheez ing #8.5 grams meclizine 25 mg tablet 25 mg PO TID PRN dizziness # 20 tabs 10/22/24 Allergies Allergy/AdvReac Type Severity Reaction Status Date / Time cefaclor (From [facility]) Allergy Intermediate Whole body Verified 10/22/24 11:50 Hives General Stated Complaint: Dizzy/Sync HECTOR: 3 Exam Narrative Exam Narrative: Review of Systems: All systems reviewed & are unremarkable except as noted in HPI and below Well-developed, no acute distress NCAT PERRL, normal conjunctiva, no nystagmus RRR, no murmur Unlabored respiratory effort, clear bilaterally no tachypnea or dyspnea Nondistended abdomen Extremities w/o deformity, no cyanosis, no edema No rashes or lesions. no focal neurologic deficits, no dysmetria, no facial asymmetry, normal speech, normal gait Appropriate mood and affect Course Vital Signs Vital signs: Vital Signs Temperature 36.7 C 10/22/24 11:43 Pulse 66 10/22/24 11:43 Respiratory Rate 16 10/22/24 11:43 Blood Pressure 147/77 H 10/22/24 11:43 Pulse Oximetry 98 10/22/24 11:43 Temperature 36.7 C 10/22/24 11:43 Temperature Source Oral 10/22/24 11:43 Pulse 80 10/22/24 12:06 Respiratory Rate 16 10/22/24 11:43 Blood Pressure 124/68 10/22/24 12:06 Blood Pressure Position Sitting 10/22/24 11:43 Pulse Oximetry 98 10/22/24 11:43 Oxygen Delivery Method Room Air 10/22/24 11:43 Oxygen Flow Rate 0 10/22/24 11:43 Pain Level 0 10/22/24 11:43 Lab/Test Results Lab/Test Results: Laboratory Tests Range/Units 10/22/24 12:13 WBC (4.4-10.8) 10^3/uL 6.80 RBC (4.36-5.78) 10^6/uL 5.00 Hgb (13.5-17.5) g/dL 14.9 Hct (40.0-50.0) % 45.2 MCV (80-95) fL 90 MCH (27.0-33.0) pg 29.8 MCHC (32.0-36.0) % 33.0 RDW (11.8-14.1) % 14.0 Plt Count (130-400) 10^3/uL 192 MPV (8.0-11.0) fL 9.2 Immature Gran % % 0.4 Neutrophils % % 66.2 Lymphocytes % % 22.2 Monocytes % % 6.2 Eosinophils % % 4.0 Basophils % % 1.0 Nucleated RBC % (0.0-0.3) % 0.0 Absolute Neutrophils (1.2-6.7) 10^3/uL 4.50 Absolute Lymphocytes (1.2-3.4) 10^3/uL 1.51 Absolute Monocytes (0.1-0.8) 10^3/uL 0.42 Absolute Eosinophils (0.0-0.7) 10^3/uL 0.27 Absolute Basophils (0.0-0.2) 10^3/uL 0.07 PT (9.1-11.1) sec 10.5 INR (0.9-1.1) 1.0 VBG pH (7.31-7.41) 7.38 VBG pCO2 (41-51) mmHg 45 VBG pO2 mmHg 40 VBG HCO3 (23-28) mmol/L 27 VBG Total CO2 (24-29) mmol/L 24 VBG O2 Saturation % 72 VBG Base Excess (-2-3) mmol/L 2 Sodium (136-145) mmol/L 137 Potassium (3.5-5.1) mmol/L 4.6 Chloride (98-107) mmol/L 103 Carbon Dioxide (21.0-32.0) mmol/L 27.5 Anion Gap (3-11) mmol/L 6.5 BUN (7-18) mg/dL 17 Creatinine (0.70-1.30) mg/dL 1.0 Est GFR (CKD-EPI 2020) (mL/min/1.73m2) 78.98 Glucose (74-106) mg/dL 109 H Calcium (8.5-10.1) mg/dL 9.5 Total Bilirubin (0.2-1.0) mg/dL 0.5 AST (15-37) U/L 29 ALT (16-63) U/L 36 Alkaline Phosphatase (46-116) U/L 110 Total Protein (6.4-8.2) g/dL 7.5 Albumin (3.4-5.0) g/dL 3.9 Medical Decision Making Emergent evaluation of dizziness. Last symptom was briefly this morning, but mostly overnight last night was a severe symptom. This has been occurring intermittently and always seems to be related to going from lying to walking. Suspect vasovagal, vertigo, doubt cardiogenic episode. Patient is well- appearing and asymptomatic at this time. An EKG was obtained and independently interpreted: Sinus 66 normal axis no acute ischemic changes. He has no focal neurologic deficits. Given his age and medical comorbidities advised that the symptoms have been ongoing for quite some time, head CT was obtained, there is no focal abnormality or no concern for a CVA process. His x-ray reveals that his pneumonia has resolved and there is no abnormality there. Lab work was reviewed and interpreted, no leukocytosis to suggest infectious etiology. No electrolyte derangement or signs of dehydration. Mild hyperglycemia that is not very significant. Patient will be discharged with a prescription for meclizine to take as needed should this dizziness symptoms return. Return guidance discussed with the patient. Recommend follow-up with PCP it should he have ongoing episodes. 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 Currently not requiring treatment as of 05/2021 Coronary artery disease (Chronic) 2003-acute CT diagnosed and treated in [place], 1 stent placed at the [facility] Medical History Personal history of nicotine dependence Quit about 2001, about a [id number] history Alcohol abuse Remote history-stopped drinking about 30 years ago Tobacco use Colon polyps Myocardial infarction (~2003) Surgical History Knee joint replacement status Bilateral knee replacement History of cataract surgery Bilateral Family History Mother , 81 No problems noted. Sister No problems noted. Sister No problems noted. Son No problems noted. Daughter No problems noted. Social History Smoking/Tobacco Use Status: Former Tobacco Use tobacco type: cigarettes Quit Date: 04/03/01 Tobacco: How many years used: 35 Quit status: quit date established Second Hand Exposure: Yes Smoking risk assessment performed?: Yes Alcohol Intake: former Drug use: Never Caregiver/Support person: No Household members: none Housing: house Do you need help understanding health information?: Rarely Pets and animals: Yes Pets and animals: cat(s) Sexually active: No Do you think of yourself as: straight/heterosexual Current gender identity: male What is your relationship status?: How often do you talk on the phone with friends or family?: three or more times per week How often do you get together with friends or relatives?: three or more times per week How often do you attend islam or hoahaoism services?: decline to answer Do you belong to any clubs or organized social groups?: no Panel score (0-1 are the most socially isolated patients): 1 What type of physical activity do you participate in: walking Duration: 30-45 minutes/day Frequency: 3-4 times per week Awilda/Hinduism: No preference Special awilda needs: No Seatbelt use: always Drive intox or ride w/intox feedmobile driver: No Do you feel safe at home: Yes Do you feel safe in your relationship?: Yes
== END 2024-10-22 16:40 | disposition home or self-care (01) ==
PROVIDERS: Emergency Provider Emergency Medicine; PCP Family Medicine
DX: R42 Dizziness and giddiness (principal); I10 Essential (primary) hypertension; Z86.79 Personal history of other diseases of the circulatory system
CPT/HCPCS: 99284 ×2; 80053; 82805; 93005; 70450; 71046; 85025; 85610; 93010